=== PATIENT | male | born 1980 | race African-American/Black ===

== ENCOUNTER 2019-05-28 02:19 | Emergency (ER) | payer MEDICAID, OTHER ==
[~2019-05-28] VITALS: Ht 177.8 cm; Wt 88.6 kg
[2019-05-28] MEDS ORDERED: PERTUSS(ACELL),DIPH,TET VAC/PF 0.5 ML VIAL IM ONE (03:15)
[2019-05-28 04:29] VITALS: BP 148/95
== END 2019-05-28 04:29 | disposition home or self-care (01) ==
LOC: EMS 02:20
DX: S01.312A Laceration without foreign body of left ear, initial encounter (principal); F31.9 Bipolar disorder, unspecified; F20.9 Schizophrenia, unspecified; F12.90 Cannabis use, unspecified, uncomplicated; Z23 Encounter for immunization; W01.198A Fall on same level from slipping, tripping and stumbling with subsequent striking against other object, initial encounter; Y93.02 Activity, running; Y92.89 Other specified places as the place of occurrence of the external cause; Y99.8 Other external cause status
CPT/HCPCS: 12013; 90471; 90715